=== PATIENT | female | born 1980 | race Caucasian/White ===

== ENCOUNTER 2021-02-10 12:21 | Observation (INO) | payer OTHER ==
[~2021-02-10] VITALS: Ht 160 cm; Wt 83.1 kg
--- NOTE | ~2021-02-10 | CON ---
[address] [address] CONSULTATION Name: MÓNICA SANTANA Room: [address] [place] Real#: [id number] Admission: 02/10/21 Attend Phys: Jeannette Carrasco MD Discharge: 02/11/21 Date of : 76 Report #: [id number] THIS REPORT FOR: cc: Aby Castaneda Melanie A. FNP Khosla, Parveen K. MD ~ DOC #: [id number] Jose Erickson MD DATE OF CONSULTATION: 02/11/2021 HISTORY OF PRESENT ILLNESS: This is a 40-year-old female patient, who was seen by me yesterday, but the patient was getting echocardiogram, and therefore, I could not fully examine her and briefly saw her. I talked to her in detail today and I reviewed extensive records from [facility], which I was able to get faxed. This patient had a history of stroke 5 years ago. 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 Their impression was that she probably had an embolic event. I do not know how much to look for atrial fibrillation at that time, but the patient also had amphetamines and opiate in her system at that time. This time, I could not discuss with her because the family was with her and urine drug screen was not done in the Emergency Room. She denies any drug abuse, but she said she was smoking the last time when she had a stroke, but this time she was not. Her episode was that she had speech difficulty as well as weakness on the right side, which resolved. Review of systems indicates that she does have a history of migraine, but she has no family history of migraine. She does have a family history of strokes. Otherwise, her review of system is mostly unremarkable. She was on 81 mg of aspirin when the stroke happened. PAST MEDICAL HISTORY: Positive for stroke. FAMILY HISTORY: Unremarkable. SOCIAL HISTORY: She is a former smoker, but she drinks alcohol occasionally. PHYSICAL EXAMINATION: NEUROLOGIC: I had examined her yesterday partly and fully today. She is alert, responsive. Her speech looks unremarkable. Cranial nerve examination appears unremarkable. She does not appear to have any hemianopsia. Neuromuscular examinations appear unremarkable. VITAL SIGNS: She has no evidence of atrial fibrillation. Blood pressure is running about 100/62, respirations 17, pulse [place] 68. [place] [address] CONSULTATION Name: MÓNICA SANTANA [address] [id number] Admission: 02/10/21 Attend Phys: Jeannette Carrasco MD Discharge: 02/11/21 Date of : 76 Report #: [id number] LABORATORY DATA: Indicates a white count of normal at 8.5. I got an extensive workup done. I did an MRI and MRA and they do not show any acute changes. MRA shows no M2 occlusions, indicating that there is a recanalization of the previously occluded vessel. Extensive records were reviewed from [place]. It looks like they did a cardiolipin antibody, homocysteine screen, hypercoagulable profile. 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 IMPRESSION: This patient has a prior left hemispheric stroke. Present episode can be transient ischemic attack or it can be seizure. It can be vasospasms because she has a history of migraine. She denies drug use, but that is in front of the family and urine drug screen was not done. She does not smoke anymore. Her cholesterol is high. I first discussed the things with her and subsequently called Dr. Carrasco, the hospitalist, and discussed with her. I suggested that she should be on a combination of aspirin and Plavix for 21 days and then she can be on one of the antiplatelet therapy. I recommended that she go to some vascular neurologist to get their opinion to make sure nothing else needs to be done. She needs more monitoring of the heart and she should see a delivery mgr for that. She can have 30 days' event monitor and subsequently even an implantable monitor should be considered in this patient. I do not have the images to review, so I cannot tell that whether there was a dissection there, which recanalized, but looks more like that there was an embolus there, because if it is a thrombus, it should not clear up. She is not on any contraception and I told her that she needs to avoid when she is on Plavix and aspirin and she should take folic acid. She should follow up with a delivery mgr and make an appointment with the vascular neurologist to get their opinion. She tells me that [facility] was contacted when she was at [facility], but I think with the present event, she needs to see them again. On this 2 combined visit, I spent more than 70 minutes of time taking care of this patient today and majority was spent counseling and coordinating, reviewing the images, studies as well as prior testing. Thank you very much for this referral. MD LAZARA Gonzalez/[place] [address] CONSULTATION Name: MÓNICA SANTANA Room: [facility] [place] Real#: [id number] Admission: 02/10/21 Attend Phys: Jeannette Carrasco MD Discharge: 02/11/21 Date of : 76 Report #: [id number] By: 12 0523Jose Erickson MD /nt
--- NOTE | ~2021-02-10 | EEG ---
[address] [address] EEG STUDY REPORT Name: MÓNICA SANTANA Room: [address] MMagiRMagi#: [id number] Admission: 02/10/21 Attend Phys: Jeannette Carrasco MD Discharge: Date of : 76 Report #: [id number] THIS REPORT FOR: cc: Aby Castaneda Melanie A. FNP Khosla, Parveen K. MD ~ DOC #: [id number] Jose Erickson MD DATE OF SERVICE: 02/11/2021 This patient has a prior stroke and she was admitted with an episode of TIA versus nonconvulsive seizure. EEG was done by placing the electrode by standard 10-20 system of electrode placement. Both referential and sequential montages were used for recording. Background activity in this patient's EEG is about 11 Hz and 30 microvolt. It is a symmetrical activity. The patient became drowsy and goes to sleep and that is associated with bilateral slowing. Photic stimulation is unremarkable. Throughout the record, no active epileptiform activity was noticed. IMPRESSION: This patient's EEG is within normal limits. Thank you very much for this referral. MD LAZARA Gonzalez/MIK By: 1716 1726Jose Erickson MD /kassie
[2021-02-10 12:52] LABS: HEMATOCRIT 42.8 % (37.0-47.0); HEMOGLOBIN 14.4 gm/dL (12.0-15.0); MCH 30.2 pg (26.0-34.0); MCHC 33.6 g/dL (28.0-37.0); MCV 89.9 fL (80.0-100.0); MPV 8.7 fl. (7.2-11.1); RBC 4.76 mil/uL (4.20-5.00); RDW-CV 14.2 % (10.5-14.5); WBC 6.9 thou/uL (4.0-11.0)
[2021-02-10 13:00] VITALS: BP 124/74
[2021-02-10 13:05] LABS: APTT 22.8 Seconds (25.0-31.3); CREATININE 0.8 mg/dL (0.6-1.3); POTASSIUM 3.9 mmol/L (3.5-5.1); PROTIME 10.3 Seconds (9.20-11.50)
[2021-02-10] MEDS ORDERED: LISINOPRIL10 MG (13:05)
[2021-02-10 13:09] LABS: ALBUMIN 3.4 g/dL (3.4-5.0); TOTAL BILIRUBIN 0.4 mg/dL (<0.1-1.0); TOTAL PROTEIN 7.1 g/dL (6.4-8.2)
[2021-02-10 14:24] LABS: URINE BILIRUBIN NEGATIVE (Negative); URINE BLOOD NEGATIVE (Negative); URINE CLARITY CLEAR; URINE COLOR YELLOW; URINE GLUCOSE-RANDOM NEGATIVE (Negative); URINE KETONES NEGATIVE (Negative); URINE LEUKOCYTES NEGATIVE (Negative); URINE NITRITE NEGATIVE (Negative); URINE PROTEIN NEGATIVE (Negative); URINE UROBILINOGEN 0.2 E.U./dl (0.2-1.0)
[2021-02-10 14:25] LABS: CHOLESTEROL 204 mg/dL (<200); HDL CHOLESTEROL 68 mg/dL (>40); LDL CHOLESTEROL 119 mg/dL (<100); SERUM ASSESSMENT Clear; TRIGLYCERIDE 89 mg/dL (<150); VLDL 18 mg/dL (<40)
[2021-02-10] MEDS ORDERED: SERTRALINE HCL100 MG PO (14:43)
--- NOTE | 2021-02-10 17:00 | 2DMMODE ---
[place] [address] 2 D/M-MODE ECHOCARDIOGRAM Name: MÓNICA SANTANA Room: [place] [address] ADM IN [facility]#: [id number] Admission: 02/10/21 Attend Phys: Jeannette Carrasco, Discharge: Date of : 76 Date of Service: 02/10/21 1700 Report #: [id number] THIS REPORT FOR: cc: Aby Castaneda Melanie A. FNP Liston, Michael J. MD [facility] ~ APPROVED REPORT Study performed: 02/10/2021 15:09:03 EXAM: Comprehensive 2D, Doppler, and color-flow Echocardiogram Patient Location: In-Patient Room #: er Status: routine BSA: 1.83 HR: 60 bpm BP: 109/77 mmHg Rhythm: NSR Other Information Study Quality: Good Indications CVA/TIA Echo Enhancing Agent Indication: Rule out Shunt Agent(s) / Amount(s) Used: Agitated Saline 10 cc 2D Dimensions IVSd: 8.53 (7-11mm) LVOT Diam: 22.70 (18-24mm) LVDd: 43.01 mm PWd: 8.88 (7-11mm) Ascending Ao: 28.78 (22-36mm) LVDs: 30.75 (25-40mm) Aortic Root: 32.47 mm Volumes Left Atrial Volume (Systole) LA ESV Index: 21.80 mL/m2 Aortic Valve AoV Peak Amilcar.: 1.05 m/s AO Peak Gr.: 4.42 mmHg LVOT Max P.66 mmHg AO Mean Gr.: 2.13 mmHg LVOT Mean P.16 [place] [address] 2 D/M-MODE ECHOCARDIOGRAM Name: MÓNICA SANTANA Room: [address] IN .R.#: [id number] Admission: 02/10/21 Attend Phys: Jeannette Carrasco, Discharge: Date of : 76 Date of Service: 02/10/21 1700 Report #: [id number] LVOT Max V: 0.82 m/s AO V2 VTI: 21.30 cm LVOT Mean V: 0.49 m/s TIM (VTI): 3.35 cm2 LVOT V1 VTI: 17.64 cm Mitral Valve E/A Ratio: 1.19 MV Decel. Time: 192.69 ms MV E Max Amilcar.: 0.69 m/s MV PHT: 55.88 ms MVA (PHT): 3.94 cm2 TDI E/Lateral E': 3.83 E/Medial E': 6.90 Medial E' Amilcar.: 0.10 m/s Lateral E' Amilcar.: 0.18 m/s Pulmonary Valve PV Peak Amilcar.: 0.89 m/s PV Peak Gr.: 3.14 mmHg Tricuspid Valve RAP Estimate: 5.00 mmHg TR Peak Gr.: 16.37 mmHg RVSP: 21.00 mmHg PA Pressure: 21.00 mmHg Left Ventricle The left ventricle is normal size. There is normal LV segmental wall motion. There is normal left ventricular wall thickness. Left ventricular systolic function is normal. LVEF is 55-60%. The left ventricular diastolic function is normal. Right Ventricle The right ventricle is normal size. The right ventricular systolic function is normal. Atria The left atrium size is normal. The interatrial septum is intact with no evidence for an atrial septal defect. The right atrium size is normal. Aortic Valve The aortic valve is normal in structure. No aortic regurgitation is present. There is no aortic valvular stenosis. Mitral Valve The mitral valve is normal in structure. Trace mitral regurgitation. No evidence [place] [address] 2 D/M-MODE ECHOCARDIOGRAM Name: MÓNICA SANTANA Room: [address] IN ..#: [id number] Admission: 02/10/21 Attend Phys: Jeannette Carrasco, Discharge: Date of : 76 Date of Service: 02/10/21 1700 Report #: [id number] Tricuspid Valve The tricuspid valve is normal in structure. Trace tricuspid regurgitation. No pulmonary hypertension. Pulmonic Valve The pulmonary valve is normal in structure. Mild pulmonic regurgitation. Great Vessels The aortic root is normal in size. IVC is normal in size and collapses >50% with inspiration. Pericardium There is no pericardial effusion. <Conclusion> The left ventricle is normal size. There is normal left ventricular wall thickness. Left ventricular systolic function is normal. LVEF is 55-60%. The left ventricular diastolic function is normal. Trace mitral regurgitation. Trace tricuspid regurgitation. No pulmonary hypertension. IVC is normal in size and collapses >50% with inspiration. The interatrial septum is intact with no evidence for an atrial septal defect. <ELECTRONICALLY SIGNED> By: Kevin Chandler MD, FACC 02/10/211699 99 99 Kevin Chandler MD, FACC /INF
--- NOTE | 2021-02-10 17:25 | EKG ---
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
[2021-02-10 18:30] VITALS: BP 112/79
[2021-02-10 18:34] VITALS: BP 128/69
[2021-02-10] MEDS ORDERED: ASA81BEC PO (18:37)
[2021-02-10 23:05] VITALS: BP 106/59
[2021-02-10 23:49] VITALS: BP 104/57
[2021-02-11 02:06] LABS: GLYCOHEMOGLOBIN (HGB A1C) 5.3 % (4.8-5.6)
[2021-02-11 04:00] VITALS: BP 118/60
[2021-02-11 04:51] LABS: HEMATOCRIT 40.7 % (37.0-47.0); HEMOGLOBIN 13.6 gm/dL (12.0-15.0); MCH 30.1 pg (26.0-34.0); MCHC 33.4 g/dL (28.0-37.0); MCV 90.1 fL (80.0-100.0); MPV 9.1 fl. (7.2-11.1); RBC 4.52 mil/uL (4.20-5.00); RDW-CV 14.5 % (10.5-14.5); WBC 8.5 thou/uL (4.0-11.0)
[2021-02-11 05:11] LABS: CALCIUM 8.5 mg/dL (8.5-10.1); CREATININE 0.6 mg/dL (0.6-1.3); POTASSIUM 3.7 mmol/L (3.5-5.1)
[2021-02-11 05:16] LABS: ALBUMIN 3.2 g/dL (3.4-5.0); TOTAL BILIRUBIN 0.3 mg/dL (<0.1-1.0); TOTAL PROTEIN 6.7 g/dL (6.4-8.2)
[2021-02-11 08:12] VITALS: BP 102/67
[2021-02-11 12:53] VITALS: BP 109/55
[2021-02-11 15:53] VITALS: BP 100/62
[2021-02-11] MEDS ORDERED: PLAVIX 75 MG TA75 M1 PO (18:45)
[2021-02-11 19:02] VITALS: BP 100/62
== END 2021-02-11 19:15 | disposition home or self-care (01) ==
LOC: M.ERS 12:21 → M.TBA-ER 13:37 → M.2W 13:37
PROVIDERS: Emergency Medicine; ADMIT Internal Medicine; ATTEND Internal Medicine
DX: R29.818 Other symptoms and signs involving the nervous system (principal); Z20.822 Contact with and (suspected) exposure to COVID-19; D68.69 Other thrombophilia; E78.5 Hyperlipidemia, unspecified; F32.9 Major depressive disorder, single episode, unspecified; Z86.73 Personal history of transient ischemic attack (TIA), and cerebral infarction without residual deficits; Z87.891 Personal history of nicotine dependence; Z79.899 Other long term (current) drug therapy